=== PATIENT | male | born 1960 | race Caucasian/White ===

== ENCOUNTER 2017-04-13 15:17 | Inpatient (IN) | payer OTHER, MEDICARE ==
[~2017-04-13] VITALS: Ht 177.8 cm; Wt 81.2 kg
[~2017-04-13 15:17] MED LIST: CEPHALEXIN500 MG PO; DEPAKOTE500 MG PO; LISINOPRIL20 MG PO
[2017-04-15] MEDS ORDERED: LISINOPRIL40 MG PO (09:27)
[2017-04-15] MEDS ORDERED: AMLODIPINE BESYL5 MG PO (09:28)
[2017-04-15] MEDS ORDERED: HYDROCHLOROTHIA25 MG PO (09:28)
[2017-04-15] MEDS ORDERED: ASPIRIN EC81 MG PO (09:28)
[2017-04-15] MEDS ORDERED: METFORMIN HCL1000 MG PO (09:29)
[2017-04-15] MEDS ORDERED: PRAVASTATIN SOD20 MG PO (09:29)
[2017-04-15] MEDS ORDERED: DIVALPROEX SOD500 MG PO (09:30)
[2017-04-15] MEDS ORDERED: DIVALPROEX SOD250 MG PO (09:30)
[2017-04-15] MEDS ORDERED: SEROQUEL400 MG PO (09:31)
[2017-04-15] MEDS ORDERED: NICORETTE2 MG MM (09:33)
[2017-04-15] MEDS ORDERED: ACYCLOVIR15 GM TOP (09:34)
== END 2017-04-15 12:05 | disposition home or self-care (01) | DRG 640 ==
LOC: ED 15:17 → CCU 17:36
PROVIDERS: ADMIT Internal Medicine
DX: E87.1 Hypo-osmolality and hyponatremia (principal); G93.41 Metabolic encephalopathy; N17.9 Acute kidney failure, unspecified; F25.0 Schizoaffective disorder, bipolar type; E87.6 Hypokalemia; I10 Essential (primary) hypertension; E11.9 Type 2 diabetes mellitus without complications; E78.5 Hyperlipidemia, unspecified
CPT/HCPCS: 36415; 80048; 80053; 80164; 80176; 81001; 82570; 83735; 83930; 83935; 84133; 84300; 84443; 84550; 85025; G0480; J1650; J2060; J2405; J7030

== ENCOUNTER 2017-04-24 19:29 | Emergency (ER) | payer OTHER ==
[~2017-04-24] VITALS: Ht 177.8 cm; Wt 81.2 kg
[~2017-04-24 19:29] MED LIST changes: +ACYCLOVIR15 GM TOP; +AMLODIPINE BESYL5 MG PO; +ASPIRIN EC81 MG PO; +DIVALPROEX SOD250 MG PO; +DIVALPROEX SOD500 MG PO; +HYDROCHLOROTHIA25 MG PO; +LISINOPRIL40 MG PO; +METFORMIN HCL1000 MG PO; +NICORETTE2 MG MM; +PRAVASTATIN SOD20 MG PO; +SEROQUEL400 MG PO
== END 2017-04-24 22:23 | disposition home or self-care (01) ==
LOC: ED 19:29
DX: Z04.1 Encounter for examination and observation following transport accident (principal); F25.9 Schizoaffective disorder, unspecified; F31.9 Bipolar disorder, unspecified; I10 Essential (primary) hypertension; E11.9 Type 2 diabetes mellitus without complications; F17.200 Nicotine dependence, unspecified, uncomplicated; Z79.82 Long term (current) use of aspirin; Z79.899 Other long term (current) drug therapy; V48.5XXA Car driver injured in noncollision transport accident in traffic accident, initial encounter
CPT/HCPCS: 99283

== ENCOUNTER 2017-11-22 18:13 | Emergency (ER) | payer OTHER ==
[~2017-11-22] VITALS: Ht 177.8 cm; Wt 81.2 kg
--- NOTE | 2017-11-23 11:01 | EKG ---
[facility] [address] [facility] [place] [address] Signed Sinus tachycardia Septal infarct , age undetermined Abnormal ECG No previous ECGs available Confirmed by TANIKA WALKER MD ([id number] on 11/23/2017 11:01:41 AM Electronically Signed By: TANIKA WALKER MD 11/23/17 1101 PATIENT NAME: DANIS TROY Electrocardiogram DATE OF : 62 PHYSICIAN: TANIKA WALKER MD REPORT #: [id number] REPORT IS CONFIDENTIAL AND NOT TO BE RELEASED WITHOUT AUTHORIZATION
== END 2017-11-23 10:59 | disposition home or self-care (01) ==
LOC: ED 18:13
PROC: 0T9B70Z Drainage of Bladder with Drainage Device, Via Natural or Artificial Opening (ICD-10-PCS; principal; 2017-11-22)
DX: R41.82 Altered mental status, unspecified (principal); F31.9 Bipolar disorder, unspecified; I10 Essential (primary) hypertension; E11.9 Type 2 diabetes mellitus without complications; Z79.82 Long term (current) use of aspirin; Z79.899 Other long term (current) drug therapy
CPT/HCPCS: 51701; 70450; 80053; 80176; 81001; 84443; 85025; 93005; 93010; 96372; 96374; 99284; G0480; J2060; J3486